=== PATIENT | male | born 1965 | race Two or more races ===

== ENCOUNTER 2020-02-11 19:26 | Emergency (ER) | payer SELFPAY ==
[~2020-02-11] VITALS: Ht 160 cm; Wt 59.0 kg
[2020-02-11 20:31] VITALS: BP 158/94
[2020-02-11] MEDS ORDERED: LIDOCAINE 1% HCL (LOCAL ANESTH.) INJ 20ML MDV ONE (21:18)
[2020-02-11] MEDS ORDERED: LIDOCAINE 1% HCL (LOCAL ANESTH.) INJ 20ML MDV ID ONE (21:30)
== END 2020-02-11 22:06 | disposition home or self-care (01) ==
LOC: ER 19:26
DX: S61.512A Laceration without foreign body of left wrist, initial encounter (principal); E11.9 Type 2 diabetes mellitus without complications; W26.8XXA Contact with other sharp object(s), not elsewhere classified, initial encounter; Y93.89 Activity, other specified; Y99.8 Other external cause status; Y92.89 Other specified places as the place of occurrence of the external cause
CPT/HCPCS: 12001; 73110; 99283; J2001

== ENCOUNTER 2023-03-16 04:36 | Inpatient (IN) | payer SELFPAY ==
[~2023-03-16] VITALS: Ht 167.6 cm; Wt 61.0 kg
[2023-03-16] MEDS ORDERED: ACCU-CHEK COMFORT CURVE STRIP VI ONE (05:15)
[2023-03-16 06:59] LABS: Basophils # (auto) 0 10 ^3/uL (0-0.2); Basophils % (auto) 0.3 % (0.0-2.0); Eosinophils # (auto) 0.1 10 ^3/uL (0-0.8); Eosinophils % (auto) 0.8 % (0.0-7.0); Hemoglobin 14.6 g/dL (13.5-17.5); Lymphocytes % (auto) 10.4 % (10.0-50.0); Mean Corpuscular Hemoglobin 32.3 pg (28.0-32.0); Mean Corpuscular Hgb Conc. 34.7 g/dL (32.0-36.0); Mean Corpuscular Volume 93.1 fL (80.0-100.0); Monocytes # (auto) 0.5 10 ^3/uL (0-1.3); Monocytes % (auto) 5.2 % (0.0-12.0); Neutrophils # (auto) 8.1 10 ^3/uL (1.6-8.6); Neutrophils % (auto) 83.3 % (37.0-80.0); Nucleated Red Blood Cells % 0.2 %; Red Blood Cells 4.51 10^6/uL (4.5-5.90); Red Cell Distribution Width 13.5 % (11.8-14.3); White Blood Cell 9.8 10^3/uL (4.4-10.8)
[2023-03-16 07:06] LABS: Albumin 3.5 g/dL (3.4-5.0); Potassium 3.8 mmol/L (3.5-5.1)
[2023-03-16 07:10] LABS: BUN/Creatinine Ratio 18.1 (10.0-20.0); Bilirubin, Total 0.3 mg/dL (0.2-1.0)
[2023-03-16 07:11] LABS: Lactic Acid w/Reflex 2.3 mmol/L (0.4-2.0)
[2023-03-16] MEDS ORDERED: SODIUM CHLORIDE 0.9% 1,000 ML IV ONE ×2 (08:00→09:30)
[2023-03-16 08:39] LABS: Urine Bacteria NONE SEEN /hpf (None Seen); Urine Blood Negative /uL (Negative); Urine Specific Gravity 1.006 (1.001-1.035); Urine WBC <1 /hpf (0 - 3)
[2023-03-16 08:56] LABS: Alcohol, Urine < 3.0 mg/dL (0-10); Amphetamine Screen, Urine NEGATIVE (NEGATIVE); Barbiturate Scree,Urine NEGATIVE (NEGATIVE); Benzodiazephine Screen, Urine NEGATIVE (NEGATIVE); Cannabinoid Screen, Urine NEGATIVE (NEGATIVE); Cocaine Screen, Urine NEGATIVE (NEGATIVE); Opiate Scree,Urine NEGATIVE (NEGATIVE); Phencyclidine Screen, Urine NEGATIVE (NEGATIVE)
[2023-03-16] MEDS ORDERED: PIPERACILLIN-TAZOB 3.375GM 100 ML IV ONE (09:15)
[2023-03-16] MEDS ORDERED: HYDR12.55 PO (09:25)
[2023-03-16] MEDS ORDERED: BENA10TA15 PO (09:25)
[2023-03-16] MEDS ORDERED: PANTOPRAZOLE 40 MG/10 ML VIAL INJ IV ONE (09:30)
[2023-03-16] MEDS ORDERED: MORPHINE SULFATE INJ 2 MG/ml SYRG IV PRN (09:30)
[2023-03-16] MEDS ORDERED: NITROGLYCERIN 0.4 MG SL TAB SL PRN (09:30)
[2023-03-16] MEDS ORDERED: CEFEPIME 1GM/ 50ML 50 ML IV ONE (09:30)
[2023-03-16] MEDS ORDERED: DEXTROSE (50%) 50ML SYRG IV PRN (09:30)
[2023-03-16] MEDS ORDERED: VANCOMYCIN PER PHARMACY 0 MG IV SCH (09:30)
[2023-03-16] MEDS: ENOXAPARIN SOD 40 MG/0.4 ML SYRINGE SC SCH (09:59)
[2023-03-16] MEDS ORDERED: VANCOMYCIN 1GM/250ML 250 ML IV ONE ×2 (10:00→11:30)
[2023-03-16] MEDS: BENAZEPRIL HCL 10 MG TAB PO SCH (10:20)
[2023-03-16] MEDS: HCTZ 25 MG TAB PO SCH (10:21)
[2023-03-16] MEDS: SODIUM CHLORIDE 0.9% 1,000 ML IV SCH ×2 (11:14→17:50)
[2023-03-16] MEDS: ACCU-CHEK COMFORT CURVE STRIP VI SCH ×3 (11:39→22:14)
[2023-03-16] MEDS: InsuLIN REG 1unit/0.01ml Soln (100units/ml) SC SCH ×3 (11:47→22:15)
[2023-03-16] MEDS: CEFEPIME 1GM/ 50ML 50 ML IV SCH (17:13)
[2023-03-16] MEDS: ACETAMINOPHEN 325 MG TAB PO PRN (17:44)
[2023-03-17] MEDS: CEFEPIME 1GM/ 50ML 50 ML IV SCH ×2 (01:14→10:07)
[2023-03-17] MEDS: SODIUM CHLORIDE 0.9% 1,000 ML IV SCH ×3 (02:10→18:54)
[2023-03-17] MEDS ORDERED: VANCOMYCIN 1GM/250ML 250 ML IV SCH (03:00)
[2023-03-17 05:53] LABS: Basophils # (auto) 0 10 ^3/uL (0-0.2); Basophils % (auto) 0.4 % (0.0-2.0); Eosinophils # (auto) 0.3 10 ^3/uL (0-0.8); Eosinophils % (auto) 5.2 % (0.0-7.0); Hematocrit 36.6 % (41.0-53.0); Hemoglobin 12.5 g/dL (13.5-17.5); Lymphocytes # (auto) 1.1 10 ^3/uL (0.4-5.4); Lymphocytes % (auto) 19.1 % (10.0-50.0); Mean Corpuscular Hemoglobin 32.3 pg (28.0-32.0); Mean Corpuscular Hgb Conc. 34.2 g/dL (32.0-36.0); Mean Corpuscular Volume 94.2 fL (80.0-100.0); Monocytes # (auto) 0.4 10 ^3/uL (0-1.3); Monocytes % (auto) 6.6 % (0.0-12.0); Neutrophils % (auto) 68.7 % (37.0-80.0); Nucleated Red Blood Cells % 0.1 %; Red Blood Cells 3.89 10^6/uL (4.5-5.90); Red Cell Distribution Width 13.2 % (11.8-14.3); White Blood Cell 5.8 10^3/uL (4.4-10.8)
[2023-03-17 06:14] LABS: Calcium 8.1 mg/dL (8.5-10.1); Potassium 3.7 mmol/L (3.5-5.1)
[2023-03-17 06:20] LABS: Albumin 2.9 g/dL (3.4-5.0); BUN/Creatinine Ratio 15.9 (10.0-20.0); Bilirubin, Total 0.3 mg/dL (0.2-1.0); Total Protein 6.1 g/dL (6.4-8.2)
[2023-03-17] MEDS: InsuLIN REG 1unit/0.01ml Soln (100units/ml) SC SCH ×4 (06:40→21:25)
[2023-03-17] MEDS: ACCU-CHEK COMFORT CURVE STRIP VI SCH ×4 (06:40→21:23)
[2023-03-17] MEDS ORDERED: PANTOPRAZOLE 40 MG/10 ML VIAL INJ IV SCH (10:00)
[2023-03-17] MEDS: BENAZEPRIL HCL 10 MG TAB PO SCH (10:06)
[2023-03-17] MEDS: HCTZ 25 MG TAB PO SCH (10:06)
[2023-03-17] MEDS: ENOXAPARIN SOD 40 MG/0.4 ML SYRINGE SC SCH (10:07)
[2023-03-17 11:19] LABS: Hepatitis A Ab IgM Negative
[2023-03-17 11:20] LABS: Hepatitis B Core IgM Negative
[2023-03-17 11:21] LABS: Hepatitis C Antibody Negative (Negative)
[2023-03-17] MEDS ORDERED: GABA100C9 PO (14:35)
[2023-03-17] MEDS ORDERED: ALOG1TAB3 PO (14:35)
[2023-03-17] MEDS ORDERED: ASPI1TAB91 PO (14:35)
[2023-03-17] MEDS ORDERED: ATOR20TA50 PO (14:35)
[2023-03-17 17:00] VITALS: BP 119/77
[2023-03-17] MEDS: ACETAMINOPHEN 325 MG TAB PO PRN (21:24)
[2023-03-17 22:00] VITALS: BP 123/71
[2023-03-18] MEDS: SODIUM CHLORIDE 0.9% 1,000 ML IV SCH ×2 (03:16→11:30)
[2023-03-18 05:00] VITALS: BP 118/77
[2023-03-18] MEDS: ACCU-CHEK COMFORT CURVE STRIP VI SCH ×2 (06:39→11:43)
[2023-03-18] MEDS: InsuLIN REG 1unit/0.01ml Soln (100units/ml) SC SCH ×2 (06:39→11:44)
[2023-03-18 07:30] VITALS: BP 123/70
[2023-03-18 09:00] VITALS: BP 135/82
[2023-03-18] MEDS: HCTZ 25 MG TAB PO SCH (09:15)
[2023-03-18] MEDS: ENOXAPARIN SOD 40 MG/0.4 ML SYRINGE SC SCH (09:16)
[2023-03-18] MEDS: BENAZEPRIL HCL 10 MG TAB PO SCH (09:16)
[2023-03-18 13:00] VITALS: BP 129/78
== END 2023-03-18 14:36 | disposition home or self-care (01) | DRG 872 ==
LOC: ER 04:36 → TELE 09:24 → TELE-EAST 03-17 12:50
PROVIDERS: ADMIT Nurse Practitioner Family; ATTEND Family Medicine
DX: A41.9 Sepsis, unspecified organism (principal); E11.649 Type 2 diabetes mellitus with hypoglycemia without coma; F10.10 Alcohol abuse, uncomplicated; I10 Essential (primary) hypertension; E86.0 Dehydration; R74.8 Abnormal levels of other serum enzymes; E78.5 Hyperlipidemia, unspecified; R68.0 Hypothermia, not associated with low environmental temperature; Z71.41 Alcohol abuse counseling and surveillance of alcoholic
CPT/HCPCS: 36415; 70450; 71045; 80053; 80074; 80307; 81001; 82533; 82565; 82962; 83605; 83880; 84443; 84484; 85025; 87040; C9113; G0378; J1815; J2543